=== PATIENT | female | born 2005 | race Two or more races ===

== ENCOUNTER 2024-01-15 14:30 | Outpatient (CLI) | payer OTHER | END 2024-01-15 14:40 | disposition home or self-care (01) | LOC: PPH VACUNA 14:30 | PROVIDERS: ATTEND Emergency Medicine Pediatric Emergency Medicine | DX: Z23 Encounter for immunization (principal) ==

== ENCOUNTER 2025-01-01 07:00 | Outpatient (CLI) | payer OTHER | END 2025-01-01 07:10 | disposition home or self-care (01) | LOC: PPH VACUNA 07:00 | PROVIDERS: ATTEND Emergency Medicine Pediatric Emergency Medicine | DX: Z23 Encounter for immunization (principal) ==

== ENCOUNTER 2025-04-22 15:12 | Outpatient (CLI) | payer OTHER | END 2025-04-22 15:17 | disposition home or self-care (01) | LOC: RAD 15:12 | PROVIDERS: ATTEND General Practice | DX: J10.00 Influenza due to other identified influenza virus with unspecified type of pneumonia (principal) ==